=== PATIENT | female | born 2000 | race Caucasian/White ===

== ENCOUNTER 2025-06-18 11:05 | Emergency (ER) | payer BC, SELFPAY ==
[2025-06-18 11:13] VITALS: BP 117/70
[2025-06-18 11:36] LABS: Hematocrit 38.7 % (37.0-47.0); Hemoglobin 12.5 g/dL (12.0-16.0); Mean Corp Hgb Conc. 32.3 g/dL (33.0-37.0); Mean Corpuscular Volume 92.1 fL (81.0-99.0); Nucleated Red Blood Cells % 0 %; Platelet Count 166 10^3/uL (130-400); Red Cell Dist. Width 12.3 % (11.5-14.5)
[2025-06-18 11:39] LABS: Urine Character Clear (Clear)
[2025-06-18 11:44] LABS: HCG, Serum Qualitative Screen Negative
[2025-06-18 11:50] LABS: ALT (SGPT) 17 U/L (0-35); AST (SGOT) 26 U/L (14-36); Albumin 4.5 g/dl (3.5-5.0); Alkaline Phosphatase 42 U/L (38-126); Blood Urea Nitrogen 11 mg/dl (7-17); Calcium 9.2 mg/dl (8.4-10.2); Carbon Dioxide 25 mmol/L (22-30); Chloride 105 mmol/L (98-107); Glucose 94 mg/dl (70-99); Lipase 178 U/L (23-300); Potassium 3.8 mmol/L (3.5-5.1); Sodium 136 mmol/L (135-145); Total Protein 6.9 g/dl (6.3-8.2); Urine Squamous Cell >30 /LPF (Few); eGFR > 60.00
[2025-06-18 11:51] LABS: Urine Red Blood Cell None Seen /HPF (0-2); Urine White Cell 0-2 /HPF (0-5)
--- NOTE | 2025-06-18 14:17 | ED.GENMED ---
History of Present Illness
General
Chief Complaint: Abdominal Pain
Source: patient and family
Exam Limitations: none
Time Seen by Provider: 06/18/25 13:59
History of Present Illness
History of Present Illness:
25yoF with with no significant past medical history presenting with her mother for evaluation of abdominal pain. Patient reports intermittent pain in her right upper abdomen for several weeks. Pain has been dull but has been worsening over the
past few days. Pain is worse after eating and drinking alcohol. She was seen by her PCP yesterday and was told to go to the ED for evaluation for concern for possible biliary colic. Patient was seen by gastroenterology for chronic constipation
and bloating. She had a breath test and was diagnosed with small intestinal bacterial overgrowth. She was prescribed an antibiotic but insurance has delayed her getting this. She denies any fevers, vomiting, diarrhea, urinary symptoms, shortness
of breath, pleuritic pain. No prior abdominal surgeries.
Phy Exam
General Physical Exam
General Presentation: well appearing and no apparent distress
General Skin: warm and dry
General Habitus: normal
General Mental: alert
ENT Exam
ENT Exam: normocephalic
Cardiovascular Exam
Cardiovascular Exam: regular rate/rhythm
Pulmonary Exam
Pulmonary Exam: lungs clear, no respiratory distress, no rales, no crackles, no rhonchi and no wheezing
Gastrointestinal Exam
Gastrointestinal Exam: soft, non distended and other (+RUQ tenderness. Abdomen soft, non-distended. No rebound or guarding. )
Neurological Exam
Neurological Exam: alert
Hector Coma Scale
Eye Opening: Spontaneous
Verbal Response: Oriented
Motor Response: Obeys Commands
GCS Total Score: 15
Skin Exam
Skin Exam: normal color and warm/dry
Psychiatric Exam
Psychiatric Exam: normal mood/affect
Course
Orders/Labs/Results
Orders:
Orders
06/18/25 11:12
Test Result ONCE
US Abdomen Complete/Upper Urgent
Comment:
Reason For Exam: right upper abd pain
06/18/25 11:21
Complete Blood Count/With Diff Urgent
Comprehensive Metabolic Panel Urgent
HCG, Serum Qualitative Screen Urgent
Lipase Urgent
Urinalysis Reflex To Culture Urgent
Date Specimen was Collected: 06/18/25
Time Specimen was Collected: 11:16
Urine Microscopic Reflex Cult Urgent
Urine Culture Urgent
ESTER Source: U
Specimen Description:
Date Specimen was Collected: 06/18/25
Time Specimen was Collected: 11:16
Abnormal Lab Results
06/18/25
11:21
MCHC 32.3 L g/dL
(33.0-37.0)
MPV 11.8 H fL
(7.4-10.4)
Total Bilirubin 1.8 H mg/dl
(0.2-1.3)
Leukocyte Esterase Rfl 1+ A
(Negative)
06/18/25 11:21
06/18/25 11:21
Vital Signs
Initial and Last Documented VS:
Initial Vital Signs
Temp Pulse Resp BP Pulse Ox
98.8 F 68 17 117/70 99
06/18/25 11:13 06/18/25 11:13 06/18/25 11:13 06/18/25 11:13 06/18/25 11:13
Last Documented Vital Signs
Temp Pulse Resp BP Pulse Ox
98.8 F 77 20 124/52 98
06/18/25 11:13 06/18/25 15:26 06/18/25 15:26 06/18/25 15:26 06/18/25 15:26
MDM/Problems Addressed
Differential Diagnosis Includes:
25yoF here with RUQ pain. Intermittent x several weeks but worsening x several days. Worse after eating and drinking alcohol. Sent in by PCP. Recently diagnosed with SIBO. VSS. She is well appearing in no distress. No signs of peritonitis on
abdominal exam. Differential diagnosis includes: Biliary colic, cholecystitis, pancreatitis, PUD
Workup initiated in triage. Labs unremarkable including normal white count, lipase, renal function. Total bilirubin 1.8, remainder of LFTs are normal. UA bland without signs of infection. Abdominal ultrasound is negative for acute findings.
Specifically, there is no evidence of cholelithiasis or cholecystitis. Offered CT given unclear etiology of pain. Both patient and mother decline this and prefer to follow-up outpatient with her PCP and GI. Strict ED return precautions reviewed.
Patient discharged in stable condition.
*Pulse Oximetry
SaO2: 99
Oxygen Mode of Delivery: Room air
Patient hypoxic: no
*Critical Care Note
Total Time (30-74mins, 75-104mins- exclusive of procedures): Not Applicable
ED Attending Note
-
Portions of this chart may have been created with voice recognition software.� Occasional wrong word or��sound alike� substitutions may have occurred due to the inherent limitations of voice recognition software.
Discharge Plan
Departure
Patient Disposition: Home (Routine Discharge)
Date of Disposition: 06/18/25
Time of Disposition: 14:18
Patient with high blood pressure during this ER visit?: No
Discharge Problem:
Right upper quadrant pain
Instructions: Abdominal Pain
Activity Restrictions/Additional Instructions:
Please follow-up with your family doctor and gastroenterology. Return to the ER with any worsening symptoms including severe pain, fevers, or jaundice.
Interventions
Interventions:
*Risk Screen - Suicide Last Done: 06/18/25 11:15
*General Assessment Last Done: 06/18/25 11:15
*Neglect/Abuse Screening Last Done: 06/18/25 11:15
*ED COVID-19 Vaccine History Last Done: 06/18/25 11:15
*ED Influenza Vaccine History Last Done: 06/18/25 11:15
*Nursing Disposition Last Done: 06/18/25 15:26
KW-Czpcha-Wxxdominst Assessment Last Done: 06/18/25 14:00
Discharge Date and Time
Discharge Date/Time: 06/18/25 15:27
Print Language: WELSH
[2025-06-18 15:26] VITALS: BP 124/52
== END 2025-06-18 15:27 | disposition home or self-care (01) ==
LOC: EMR 11:05
PROVIDERS: Emergency Medicine; EMERGENCY PHYSICIAN Emergency Medicine; FAMILY PHYSICIAN Nurse Practitioner Gerontology
DX: R10.11 Right upper quadrant pain (principal); K59.09 Other constipation
CPT/HCPCS: 99284; 76700; 80053; 81003; 81015; 83690; 84703; 85025; 87086